=== PATIENT | female | born 1990 | race African-American/Black ===

== ENCOUNTER 2018-04-13 09:34 | Emergency (ER) | payer OTHER ==
[2018-04-13 10:59] LABS: Absolute Lymphocytes (CBC) 1.1 K/uL (0.7-4.9); Absolute Monocytes 0.5 K/uL (0.1-1.3); Absolute Neutrophil 3.4 K/uL (1.8-8.0); Basophils % 0.5 % (0-1.3); Eosinophils % 0.6 % (0-4.4); Hematocrit 34.2 % (36.0-45.0); MCH 31.2 pg (27.0-35.0); MCV 88.9 fL (80-100); Monocytes % 9.1 % (3.3-12.3); RBC Red Blood Cell Count 3.85 M/uL (3.86-4.86)
[2018-04-13 11:07] LABS: Protime INR 0.92
[2018-04-13 11:20] LABS: ALT/SGPT 14 U/L (12-78); AST/SGOT 11 U/L (15-37); Albumin 2.8 g/dL (3.4-5.0); Alkaline Phosphatase 87 U/L (45-117); BUN Blood Urea Nitrogen 6 mg/dL (7-18); Bicarbonate 26 mmol/L (21-32); Bilirubin Total 0.4 mg/dL (0.2-1.0); Glucose Level 83 mg/dL (74-106); Magnesium 1.9 mg/dL (1.8-2.4); NT PRO-BNP 110 pg/mL (<125); Potassium 3.6 mmol/L (3.5-5.1); Protein, Total 6.5 g/dL (6.4-8.2); Sodium Level 138 mmol/L (136-145)
--- NOTE | 2018-04-13 11:27 | RAD REPORT ---
EXAM DESCRIPTION: VASExtrem Venous W Compress Bil04/13/2018 11:14 am CLINICAL HISTORY: Leg pain COMPARISON: none FINDINGS: The common femoral, superficial femoral, popliteal and posterior tibial veins bilaterally are compressible and demonstrate augmentation. Doppler demonstrates good flow. IMPRESSION: No evidence of deep venous thrombosis involving either lower extremity.
[2018-04-13 11:28] LABS: Urine Blood NEGATIVE (NEG); Urine Glucose NEGATIVE (NEG); Urine Protein NEGATIVE (NEG)
--- NOTE | 2018-04-13 11:28 | RAD REPORT ---
EXAM DESCRIPTION: RAD - Chest Single View - 04/13/2018 11:15 am CLINICAL HISTORY: Chest pain COMPARISON: April 2015 TECHNIQUE: AP portable chest image was obtained 1036 hours . FINDINGS: Lungs are clear. Heart and vasculature are normal. No measurable pleural effusion and no p neumothorax. No gross bony abnormality seen. No acute aortic findings suspected. IMPRESSION: No acute cardiopulmonary process. No significant change from comparison.
[2018-04-13 11:47] LABS: Urine Bacteria 20-50 /HPF (<20); Urine RBC <5 /HPF (NONE SEEN)
[2018-04-13 11:48] LABS: Urine Culture Reflex Order REFLEXED; Urine Trichomonas PRESENT (NONE SEEN)
--- NOTE | 2018-04-13 12:55 | ER ---
Nurse's Notes [facility] Name: Crystal Alba Age: 27 yrs Sex: Female : 1990 Arrival Date: 04/13/2018 Time: 09:37 Bed 19 Private MD: Out, [facility] Diagnosis: trichomonas infection;UTI in ;Chest pain;Elevated D-dimer Presentation: 04/13 09:44 Presenting complaint: Patient states: CP, lightheaded, dizzy x 1 week. Pt reports it ss seems worse this morning and she fell from a standing position. Pt reports she is 30 weeks and 5 days . Transition of care: patient was not received from another setting of care. Onset of symptoms is unknown. Risk Assessment: Do you want to hurt yourself or someone else? Patient reports no desire to harm self or others. Initial Sepsis Screen: Does the patient meet any 2 criteria? No. Patient's initial sepsis screen is negative. Does the patient have a suspected source of infection? No. Patient's initial sepsis screen is negative. Note When asked, patient states she is not concerned about the baby currently, but more herself and would like to have herself checked in ER first rather than go to L\T\D for evaluation. Dr. Ibarra states okay to be evaluated in ER first. Care prior to arrival: None. 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 - Social history:: Smoking status: Patient/guardian denies using tobacco. - Ebola Screening: : Patient denies exposure to infectious person Patient denies travel to an Ebola-affected area in the 21 days before illness onset. Screenin:07 Abuse screen: Denies threats or abuse. Nutritional screening: No deficits noted. em Tuberculosis screening: No symptoms or risk factors identified. Fall Risk None identified. Assessment: 10:09 General: Appears in no apparent distress. comfortable, Behavior is calm, cooperative, em having CP, low back pain, dizziness for a week, chest pain is described as annoying, denies N/V. Pain: Complains of pain in lumbar area. Pain: Pain does not radiate. Pain currently is 6 out of 10 on a pain scale. Pain began 1 week ago. Neuro: Level of Consciousness is awake, alert, obeys commands, Oriented to person, place, time, situation, Moves all extremities. Gait is steady, Speech is normal, Reports dizziness, since 1 week. Cardiovascular: Reports chest pain, since 1 week Denies diaphoresis, nausea, shortness of breath, syncope, Capillary refill < 3 seconds Patient's skin is warm and dry. Respiratory: Airway is patent Respiratory effort is even, unlabored, Respiratory pattern is regular, symmetrical, Breath sounds are clear bilaterally. GI: Abdomen is round Patient currently denies nausea, vomiting. : No signs and/or symptoms were reported regarding the genitourinary system. Derm: Skin is intact, Skin is pink, warm \T\ dry. Musculoskeletal: Range of motion: intact in all extremities. 10:12 General: The previous assessment is accurate, Call light remains within reach.. ss 11:20 Reassessment: Laboratory called for critical D-Dimer result of 4,155; MD provider Dr. etienne Ibarra informed. 11:34 Reassessment: Patient appears in no apparent distress at this time. Patient and/or em family updated on plan of care and expected duration. Pain level reassessed. Patient is alert, oriented x 3, equal unlabored respirations, skin warm/dry/pink. 6/10 back pain, chest pain has resolved. 12:59 Reassessment: Patient appears in no apparent distress at this time. Patient and/or em family updated on plan of care and expected duration. Pain level reassessed. Patient is alert, oriented x 3, equal unlabored respirations, skin warm/dry/pink. Patient states feeling better. Vital Signs: 09:49 BP 118 / 79; Pulse 82; Resp 16; Temp 98.0(O); Pulse Ox 99% on R/A; Weight 111.13 kg; ss Height 5 ft. 10 in. (177.80 cm); Pain 6/10; 11:35 BP 113 / 68; Pulse 73; Resp 18; Pulse Ox 100% on R/A; Pain 6/10; em 13:00 BP 115 / 62; Pulse 67; Resp 17; Pulse Ox 98% on R/A; em 09:49 Body Mass Index 35.15 (111.13 kg, 177.80 cm) ss Vitals: 10:28 Heart Tones 148 BPM. em ED Course: 09:37 Patient arrived in ED. sb2 09:37 Out, [facility] is Private Physician. sb2 09:43 Heriberto Coley LVN is Primary Nurse. em 09:45 Douglas Ibarra MD is Attending Physician. ps1 09:47 Triage completed. ss 09:49 Arm band placed on left wrist. ss 09:53 EKG done, by engineer technical staff. reviewed by Douglas Ibarra MD. at1 10:07 Patient has correct armband on for positive identification. Placed in gown. Bed in low em position. Call light in reach. Pulse ox on. NIBP on. 10:07 Patient maintains SpO2 saturation greater than 95% on room air. em 10:40 Patient taken to ultrasound. via wheelchair. lc3 10:52 X-ray completed. Portable x-ray completed in exam room. Patient tolerated procedure ag1 well. Note: PT WAS SHIELDED IN ABD AREA, WAS ALSO TOLD ABOUT POTENTIAL RISK OF RADIATION WHILE . . 10:54 Initial lab(s) drawn, by me, sent to lab. Inserted saline lock: 20 gauge in right em antecubital area, using aseptic technique. Blood collected. 11:07 Extrem Venous W Compression Hernandez US In Process Unspecified. EDMS 11:08 Ultrasound completed. Patient tolerated well. Patient moved back from ultrasound. lc3 11:15 XRAY Chest (1 view) In Process Unspecified. EDMS 12:54 Out, [facility] is Referral Physician. ps1 13:08 No provider procedures requiring assistance completed. IV discontinued, intact, em bleeding controlled, No redness/swelling at site. Pressure dressing applied. Administered Medications: No medications were administered Outcome: 12:55 Discharge ordered by . ps1 13:11 Discharged to home ambulatory. em 13:11 Condition: good 13:11 Discharge instructions given to patient, Instructed on discharge instructions, follow up and referral plans. medication usage, Demonstrated understanding of instructions, follow-up care, medications. 13:12 Patient left the ED. em Signatures: Dispatcher [employer] EDMS Heriberto Coley BEATER WORKER HELPER BEATER WORKER HELPER em Shannon Booth, LAMIN RN ss Parul motta, enterprise systems manager EKG Tat1 Namrata Bahena ag1 Addi Perry Phillip, MD MD ps1 Modesta Vaz sb2 Karen Jaime cc3 Corrections: (The following items were deleted from the chart) 10:54 10:09 Cardiovascular: Reports chest pain, since 1 week Denies nausea, syncope, em Capillary refill < 3 seconds Patient's skin is warm and dry. em
--- NOTE | 2018-04-13 12:55 | EDPHYS ---
Physician Documentation [facility] Name: Crystal Alba Age: 27 yrs Sex: Female : 1990 Arrival Date: 04/13/2018 Time: 09:37 Bed 19 Private MD: Out, [facility] ED Physician Douglas Ibarra HPI: 04/13 13:03 This 27 yrs old Black Female presents to ER via Ambulatory with complaints of Chest ps1 Pain, Dizziness, 30 Wk Pg. 13:03 \T\ 30 wks. Last for HTN. presenting with chest pain. Onset was ps1 over the last week. No shortness of breath. No pain in legs. Pain rated as moderate and localized to the xiphoid area. No hx of blood clots. . 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 - Social history:: Smoking status: Patient/guardian denies using tobacco. - Ebola Screening: : Patient denies exposure to infectious person Patient denies travel to an Ebola-affected area in the 21 days before illness onset. ROS: 13:03 Constitutional: Negative for fever, chills, and weight loss, Eyes: Negative for injury, ps1 pain, redness, and discharge, ENT: Negative for injury, pain, and discharge, Respiratory: Negative for shortness of breath, cough, wheezing, and pleuritic chest pain, Abdomen/GI: Negative for abdominal pain, nausea, vomiting, diarrhea, and constipation, : Negative for injury, bleeding, discharge, and swelling, MS/Extremity: Negative for injury and deformity, Skin: Negative for injury, rash, and discoloration, Neuro: Negative for headache, weakness, numbness, tingling, and seizure. Exam: 13:03 Constitutional: This is a well developed, well nourished patient who is awake, alert, ps1 and in no acute distress. Head/Face: Normocephalic, atraumatic. Eyes: Pupils equal round and reactive to light, extra-ocular motions intact. Lids and lashes normal. Conjunctiva and sclera are non-icteric and not injected. Chest/axilla: Normal chest wall appearance and motion. Nontender with no deformity. No lesions are appreciated. Cardiovascular: Regular rate and rhythm. No gallops, murmurs, or rubs. Normal PMI, no JVD. No pulse deficits. Respiratory: Lungs have equal breath sounds bilaterally, clear to auscultation and percussion. No rales, rhonchi or wheezes noted. No increased work of breathing, no retractions or nasal flaring. 13:03 Abdomen/GI: Gravid, soft NT + BS. . Vital Signs: 09:49 BP 118 / 79; Pulse 82; Resp 16; Temp 98.0(O); Pulse Ox 99% on R/A; Weight 111.13 kg; ss Height 5 ft. 10 in. (177.80 cm); Pain 6/10; 11:35 BP 113 / 68; Pulse 73; Resp 18; Pulse Ox 100% on R/A; Pain 6/10; em 13:00 BP 115 / 62; Pulse 67; Resp 17; Pulse Ox 98% on R/A; em 09:49 Body Mass Index 35.15 (111.13 kg, 177.80 cm) ss MDM: 10:36 Patient medically screened. ps1 13:03 Data reviewed: vital signs, nurses notes. Counseling: I had a detailed discussion with ps1 the patient and/or guardian regarding: the historical points, exam findings, and any diagnostic results supporting the discharge/admit diagnosis, lab results, radiology results, the need for outpatient follow up, an OB/Gyne specialist. ED course: patient has elevated D-dimer however no hypoxia, EKG changes, tachycardia, leg pain, negative bilateral US. Patient deferred CTA for PE at this time as her pain has improved. Patient is positive for trich and UTI. . 04/13 10:36 Order name: CBC with Diff; Complete Time: 12:15 ps1 04/13 10:36 Order name: Magnesium; Complete Time: 12:15 ps1 04/13 10:36 Order name: NT PRO-BNP; Complete Time: 12:15 ps1 04/13 10:36 Order name: PT-INR; Complete Time: 12:15 ps1 04/13 10:36 Order name: Ptt, Activated; Complete Time: 12:15 ps1 04/13 10:36 Order name: Troponin (emerg Dept Use Only); Complete Time: 12:15 ps1 04/13 10:36 Order name: XRAY Chest (1 view); Complete Time: 12:15 ps1 04/13 10:36 Order name: D-Dimer; Complete Time: 12:15 ps1 04/13 10:36 Order name: CMP; Complete Time: 12:15 ps1 04/13 10:36 Order name: Extrem Venous W Compression Hernandez US; Complete Time: 12:15 ps1 04/13 10:55 Order name: Urine Microscopic Only; Complete Time: 12:15 em 04/13 11:14 Order name: Urine Dipstick--Ancillary (enter results); Complete Time: 12:15 ag 04/13 11:14 Order name: Urine --Ancillary (enter results); Complete Time: 12:15 ag 04/13 11:49 Order name: Urine Culture EDMS 04/13 10:36 Order name: EKG; Complete Time: 10:36 ps1 04/13 10:36 Order name: Cardiac monitoring; Complete Time: 10:53 ps1 04/13 10:36 Order name: EKG - Nurse/Tech; Complete Time: 10:53 ps1 04/13 10:36 Order name: IV Saline Lock; Complete Time: 10:53 ps1 04/13 10:36 Order name: Labs collected and sent; Complete Time: 10:53 ps1 04/13 10:36 Order name: O2 Per Protocol; Complete Time: 10:53 ps1 04/13 10:36 Order name: O2 Sat Monitoring; Complete Time: 10:53 ps1 04/13 10:36 Order name: Urine Dipstick-Ancillary (obtain specimen); Complete Time: 10:53 ps1 Administered Medications: No medications were administered Disposition: 04/13/18 12:55 Discharged to Home. Impression: trichomonas infection, UTI in , Chest pain, Elevated D-dimer. - Condition is Stable. - Discharge Instructions: Nonspecific Chest Pain, Trichomoniasis, and Urinary Tract Infection. - Prescriptions for Flagyl 500 mg Oral Tablet - take 1 tablet by ORAL route every 12 hours for 7 days; 14 tablet. Keflex 500 mg Oral Capsule - take 1 capsule by ORAL route every 8 hours for 10 days; 30 capsule. - Medication Reconciliation Form, Thank You Letter, Antibiotic Education, Prescription Opioid Use form. - Follow up: Out, of Town; When: 48 Hours; Reason: Recheck today's complaints, Re-evaluation by your physician. Follow up: Emergency Department; When: As needed; Reason: Fever > 102 F, Trouble breathing, Worsening of condition. - Problem is new. - Symptoms are resolved. Signatures: Dispatcher [employer] EDAL Heriberto Coley, HOSPITALIST NOCTURNIST PHYSICIAN HOSPITALIST NOCTURNIST PHYSICIAN em Shannon Booth RN RN ss Douglas Ibarra MD MD ps1 Corrections: (The following items were deleted from the chart) 13:12 12:55 04/13/2018 12:55 Discharged to Home. Impression: trichomonas infection; UTI in em ; Chest pain; Elevated D-dimer. Condition is Stable. Forms are Medication Reconciliation Form, Thank You Letter, Antibiotic Education, Prescription Opioid Use. Follow up: of Town Out; When: 48 Hours; Reason: Recheck today's complaints, Re-evaluation by your physician. Follow up: Emergency Department; When: As needed; Reason: Fever > 102 F, Trouble breathing, Worsening of condition. Problem is new. Symptoms are resolved. ps1
[2018-04-13 13:18] VITALS: TEMP 98
[2018-04-13 13:21] VITALS: BP 115/62; O2SAT 98
--- NOTE | 2018-04-13 13:43 | EKG ---
Test Date: 2018-04-13 Test Time: 09:43:06 Rod Tape Operator: DONALD MEASUREMENT RESULTS: Intervals: Rate: 86 [place]: 154 QRSD: 84 QT: 334 QTc: 399 [place]: P: 51 [place]: 154 QRS: 34 T: 9 INTERPRETIVE STATEMENTS: Normal sinus rhythm Normal ECG Compared to ECG 04/29/2015 15:24:58 No significant changes Electronically Signed On 04-13-18 13:42:28 CDT by Gene Hester
== END 2018-04-13 13:12 | disposition home or self-care (01) ==
LOC: ER 09:34
DX: O23.43 Unspecified infection of urinary tract in pregnancy, third trimester (principal); A59.9 Trichomoniasis, unspecified; R07.9 Chest pain, unspecified; R79.1 Abnormal coagulation profile; Z3A.30 30 weeks gestation of pregnancy; Z79.82 Long term (current) use of aspirin; Z91.013 Allergy to seafood
CPT/HCPCS: 36415; 71045; 80053; 81003; 81015; 81025; 83735; 83880; 84484; 85025; 85379; 85610; 85730; 87086; 87088; 93005; 93970; 99285